=== PATIENT | female | born 1960 ===

== ENCOUNTER 2019-06-18 12:17 | Emergency (ER) | payer OTHER, SELFPAY ==
[2019-06-18 12:28] VITALS: BP 165/70; PULSE 88; RESP 16; TEMP 36.4; O2SAT 97
--- NOTE | 2019-06-18 13:20 | ED.GENADULT ---
HPI - General Adult General Chief complaint: Upper Respiratory Infection Stated complaint: sore throat/headache/weakness/shaky/cough Time Seen by Provider: 06/18/19 13:20 Source: patient and RN notes reviewed Mode of arrival: ambulatory Limitations: no limitations History of Present Illness HPI narrative: 58-year-old female presents with complaints of upper respiratory infection, facial congestion, facial pain, fatigue, cough, and intermittent headaches (not the worst of her life) for the past 11 days. Mucinex cough and cold, allergy sinus pain reliever and cough medicine without relief. No facial swelling. Dry cough. Nasal congestion and rhinorrhea. No chest pain or shortness of breath. Exacerbating factors consist of smoke exposure. Denies fever or chills. Denies nausea, vomiting, and abdominal pain. Tolerating po intake well. Remains active. Menopausal. Some parts of this dictation were generated by voice recognition software and may contain typographical and/or grammatical inaccuracies. Related Data Home Medications Medication Instructions Recorded Confirmed albuterol sulfate 1 inh INHALATION DAILY 06/18/19 06/18/19 buspirone 10 mg PO DAILY 06/18/19 06/18/19 cyclobenzaprine 10 mg PO DIRECTED 06/18/19 06/18/19 fluticasone propionate 1 mcg INTRANASAL DAILY 06/18/19 06/18/19 gabapentin 300 mg PO DAILY 06/18/19 06/18/19 ibuprofen 800 mg PO DIRECTED 06/18/19 06/18/19 trazodone 100 mg PO DAILY 06/18/19 06/18/19 Allergies Allergy/AdvReac Type Severity Reaction Status Date / Time Penicillins Allergy Mild Hives Verified 06/18/19 12:56 aripiprazole Allergy Unknown Unknown Verified 07/16/17 14:26 Review of Systems Review of Systems: Narrative: CONSTITUTIONAL: Complains of fatigue. Denies fever, chills, sweats. EYES: Denies visual changes, redness, discharge. ENT: Complains of rhinorrhea, congestion, facial pressure and congestion, sore throat. Denies otalgia. CARDIOVASCULAR: Denies chest pain, palpitations, edema. RESPIRATORY: Denies dyspnea, wheezing. Complains of dry cough. GASTROINTESTINAL: Denies abdominal pain, nausea, vomiting, diarrhea. GENITOURINARY: Denies dysuria, hematuria, abnormal discharge. SKIN: Denies rash or itching. MUSCULOSKELETAL: Denies acute back pain, joint pain, or myalgia. NEUROLOGIC: Denies numbness or focal weakness. Complains of intermittent VINCENT. PSYCHIATRIC: Denies anxiety or depression. All systems reviewed & are unremarkable except as noted in HPI and below. [facility] Past Medical History Medical History (Updated 06/19/19 @ 00:01 by Tammy De La Vega) Arthritis Breast cancer COPD (chronic obstructive pulmonary disease) Heart murmur Hx of migraines Left breast mass Menopause Neuropathy Surgical History Surgical History (Updated 06/18/19 @ 13:31 by DA Molina) History of lumpectomy of left breast Hx of appendectomy Family History Family History (Updated 06/18/19 @ 13:31 by DA Molina) Mother Diabetes mellitus Bone cancer Social History Social History (Updated 06/18/19 @ 13:32 by DA Molina) Smoking packs per day: 0.5 Smoking cigarettes per day: 10.0 Years smoked: 40 Smoking pack-years: 20.00 Smoking status: Current every day smoker Second hand tobacco smoke exposure: No Alcohol intake: never Substance use: never Living arrangements: with family Occupation/Education: unemployed Gender identity (if verbalized by the patient): Female Comments At time of signature, agree with nurse past medical, surgical, social, and family history. There is no relevant family history pertinent to the presenting complaint. Exam Narrative: Exam Narrative: GENERAL: This is a well-nourished, well-developed patient, in no apparent distress. Talks in full sentences and ambulates with steady gait without dyspnea. HEAD: normocephalic, atraumatic. EYES: PERRL. Sclera clear/white. Vision is grossly intact. EARS: Ext
== END 2019-06-18 13:56 | disposition home or self-care (01) ==
PROVIDERS: Emergency Provider Nurse Practitioner Family; PCP Family Medicine
DX: J32.9 Chronic sinusitis, unspecified (principal); F17.210 Nicotine dependence, cigarettes, uncomplicated; M19.90 Unspecified osteoarthritis, unspecified site; Z85.3 Personal history of malignant neoplasm of breast; J44.9 Chronic obstructive pulmonary disease, unspecified; R01.1 Cardiac murmur, unspecified; G62.9 Polyneuropathy, unspecified
CPT/HCPCS: 87081; 87880; 99213; G0463

== ENCOUNTER 2019-08-18 16:30 | Emergency (ER) | payer OTHER, SELFPAY ==
--- NOTE | ~2019-08-18 | XR_ITS ---
EXAMINATION: XR chest 2V EXAM DATE: 08/18/2019 17:16 INDICATION: Sometimes productive cough. TECHNIQUE: Frontal and lateral projections of the chest obtained and reviewed. There is no prior cj dy for comparison. FINDINGS: The lungs are clear. There are no pleural effusions. The cardiomediastinal silhouette is within normal limits. There is no pneumothorax suspected. The bones and soft tissues are unremarkab le. There are cholecystectomy clips. IMPRESSION: No acute cardiopulmonary findings. If symptoms persist consider screening LDCT. Reviewed, dictated and finalized at location A. IMPRESSION: No acute cardiopulmonary findings. If symptoms persist consider sc reening LDCT.
[2019-08-18 16:55] VITALS: BP 132/66; PULSE 75; RESP 16; TEMP 37; O2SAT 97
--- NOTE | 2019-08-18 17:19 | ED.URI ---
HPI - URI/Sore Throat General Chief Complaint: Upper Respiratory Infection Stated Complaint: cough/chest congestion Time Seen by Provider: 08/18/19 17:02 Source: patient and RN notes reviewed Mode of arrival: ambulatory Limitations: no limitations History of Present Illness HPI Narrative: Patient presents today complaining of a mostly nonproductive cough x2 days. She does report some discomfort in the left sternal area with deep breaths and coughing, but no pain otherwise. Denies fever, shortness of breath, sore throat, congestion, rhinorrhea. History of COPD and breast cancer. She has been taking Zyrtec and cough syrup without much relief. MD elicited complaint: cough Related Data Home Medications Medication Instructions Recorded Confirmed albuterol sulfate 1 inh INHALATION DAILY 06/18/19 08/18/19 buspirone 10 mg PO DAILY 06/18/19 08/18/19 cyclobenzaprine 10 mg PO DIRECTED 06/18/19 08/18/19 fluticasone propionate 1 mcg INTRANASAL DAILY 06/18/19 08/18/19 gabapentin 300 mg PO DAILY 06/18/19 08/18/19 ibuprofen 800 mg PO DIRECTED 06/18/19 08/18/19 trazodone 100 mg PO DAILY 06/18/19 08/18/19 Allergies Allergy/AdvReac Type Severity Reaction Status Date / Time Penicillins Allergy Mild Hives Verified 08/18/19 17:02 aripiprazole Allergy Unknown Unknown Verified 08/18/19 17:02 Review of Systems Review of Systems: Narrative: CONSTITUTIONAL: Denies body aches, fever, chills, or sweats. EYES: Denies visual changes, redness, or discharge. ENT: Denies rhinorrhea, congestion, sore throat, or otalgia. CARDIOVASCULAR: Denies chest pain, palpitations, or edema. RESPIRATORY: Denies dyspnea.+ Cough, chest wall pain GASTROINTESTINAL: Denies abdominal pain, nausea, vomiting, or diarrhea. GENITOURINARY: Denies dysuria or hematuria. SKIN: Denies rash, itching, or wounds. MUSCULOSKELETAL: Denies back pain, joint pain, or myalgia. NEUROLOGIC: Denies headache, numbness, tingling, or weakness. PSYCH: Denies depression or anxiety. [facility] Past Medical History Medical History (Updated 08/18/19 @ 17:39 by Sherlyn Martinez, [employer], [place]) Arthritis Breast cancer COPD (chronic obstructive pulmonary disease) Heart murmur Hx of migraines Left breast mass Menopause Neuropathy Surgical History Surgical History (Updated 06/18/19 @ 13:31 by DA Molina) History of lumpectomy of left breast Hx of appendectomy Family History Family History (Updated 06/18/19 @ 13:31 by DA Molina) Mother Diabetes mellitus Bone cancer Social History Social History (Updated 06/18/19 @ 13:32 by DA Molina) Smoking packs per day: 0.5 Smoking cigarettes per day: 10.0 Years smoked: 40 Smoking pack-years: 20.00 Smoking status: Current every day smoker Second hand tobacco smoke exposure: No Alcohol intake: never Substance use: never Gender identity (if verbalized by the patient): Female Exam Narrative: Exam Narrative: GENERAL: Well-appearing, well-nourished, and in no acute distress. HEAD: Normocephalic, atraumatic. EYES: EOMI. No redness or drainage. Conjunctivae normal. ENT: Mucous membranes pink and moist. Nares clear. No rhinorrhea. TMs normal bilaterally. Throat normal. Uvula midline. NECK: Normal AROM. Supple. No lymphadenopathy. CHEST: No respiratory distress. Slight crackles in the bilateral bases, otherwise clear. HEART: Regular rate and rhythm. No murmur appreciated. Normal peripheral pulses. EXTREMITIES: Normal range of motion. No edema. SKIN: Warm, dry, no rash. Capillary refill normal. Normal skin turgor. NEURO: No focal deficits. Alert and oriented x3. Gait steady. PSYCH: Normal affect. No signs of depression or anxiety. Course Vital Signs Vital signs: Vital Signs Temperature 98.6 F 08/18/19 16:55 Pulse Rate 75 08/18/19 16:55 Respiratory Rate 16 08/18/19 16:55 Blood Pressure 132/66 08/18/19 16:55 Pulse Oximetry 97 08/18/19 16:55 Temperature
== END 2019-08-18 17:45 | disposition home or self-care (01) ==
PROVIDERS: Emergency Provider Nurse Practitioner; PCP Family Medicine
DX: J45.901 Unspecified asthma with (acute) exacerbation (principal); J44.9 Chronic obstructive pulmonary disease, unspecified; M19.90 Unspecified osteoarthritis, unspecified site; Z85.3 Personal history of malignant neoplasm of breast; G62.9 Polyneuropathy, unspecified; F17.210 Nicotine dependence, cigarettes, uncomplicated
CPT/HCPCS: 71046; 99213; G0463

== ENCOUNTER 2020-01-20 10:09 | Emergency (ER) | payer OTHER, SELFPAY ==
--- NOTE | ~2020-01-20 | XR_ITS ---
EXAMINATION: XR chest 2V DATE: 01/20/2020 10:41 INDICATION: Cough. TECHNIQUE: Frontal and lateral views of the chest were obtained. COMPARISON: Chest 2 views 08/18/2019 FINDINGS: The lungs are hyperexpanded, consistent with emphysema. No pleural effusion or pneumothorax . The heart size is normal. There are surgical clips in left breast. IMPRESSION: 1. Emphysema. Reviewed, dictated and finalized at location A. IMPRESSION: 1. Emphysema.
[2020-01-20 10:18] VITALS: BP 146/60; PULSE 84; RESP 18; TEMP 37; O2SAT 94
--- NOTE | 2020-01-20 10:18 | ED.GENADULT ---
HPI - General Adult General Chief complaint: Upper Respiratory Infection Stated complaint: Sore Throat,Cough Time Seen by Provider: 01/20/20 10:26 Source: patient Mode of arrival: ambulatory Limitations: no limitations History of Present Illness HPI narrative: 59-year-old female patient presents to the [facility] with complaints of cold symptoms for the past 2 weeks. Patient states she has had a cough and at times she does cough up some yellow sputum. Patient states she has had a little bit of pain to the left ear, runny nose, itchy eyes. Denies any fevers body aches or chills. Denies any chest pain or shortness of breath. Patient states she does have a slight sore throat at times but is been intermittent. Patient states she also feels like she has been wheezing. Denies any abdominal pain, nausea, vomiting or diarrhea. Patient does have a history of COPD and is an active smoker. Patient states that she did get her pneumonia and flu shot this year. Patient states she has been taking some over the counter 12-hour cough syrup, Zyrtec as well as using her nebulizer at home. Patient states she has been tested for COVID but is been many months ago and nothing current. Related Data Home Medications Medication Instructions Recorded Confirmed albuterol sulfate 1 inh INHALATION DAILY 06/18/19 08/18/19 buspirone 10 mg PO DAILY 06/18/19 08/18/19 cyclobenzaprine 10 mg PO DIRECTED 06/18/19 08/18/19 fluticasone propionate 1 mcg INTRANASAL DAILY 06/18/19 08/18/19 gabapentin 300 mg PO DAILY 06/18/19 08/18/19 ibuprofen 800 mg PO DIRECTED 06/18/19 08/18/19 trazodone 100 mg PO DAILY 06/18/19 08/18/19 budesonide-formoterol [Symbicort] INHALATION 01/20/20 dicyclomine mg 01/20/20 lamotrigine 01/20/20 Allergies Allergy/AdvReac Type Severity Reaction Status Date / Time Penicillins Allergy Mild Hives Verified 08/18/19 17:02 aripiprazole Allergy Unknown Unknown Verified 08/18/19 17:02 Review of Systems Review of Systems: Narrative: CONSTITUTIONAL: Denies fever, chills, or sweats. EYES: Denies visual changes, redness, or discharge. ENT: Denies rhinorrhea, positive congestion, sore throat, and left otalgia. CARDIOVASCULAR: Denies chest pain, palpitations, or edema. RESPIRATORY: Positive cough, denies dyspnea. GASTROINTESTINAL: Denies abdominal pain, nausea, vomiting, or diarrhea. GENITOURINARY: Denies dysuria or hematuria. SKIN: Denies rash or itching. MUSCULOSKELETAL: Denies back pain, joint pain, or myalgia. NEUROLOGIC: Denies headache, numbness, or weakness. PSYCHIATRIC: Denies anxiety or depression. [facility] Past Medical History Medical History Arthritis Breast cancer COPD (chronic obstructive pulmonary disease) Heart murmur Hx of migraines Left breast mass Menopause Neuropathy Surgical History Surgical History History of lumpectomy of left breast Hx of appendectomy Family History Family History Mother Diabetes mellitus Bone cancer Social History Social History Smoking packs per day: 0.5 Smoking cigarettes per day: 10.0 Years smoked: 40 Smoking pack-years: 20.00 Smoking status: Current every day smoker Second hand tobacco smoke exposure: No Alcohol intake: never Substance use: never Gender identity (if verbalized by the patient): Female Comments At the time of my signature I agree with nursing past medical history, surgical, social, and family history. There is no relevant family history pertinent to the presenting complaint. Exam Narrative: Exam Narrative: GENERAL: Well-appearing, well-nourished, and in no acute distress. HEAD: Normocephalic, atraumatic. EYES: PERRLA and EOMI. ENT: Nares with erythema and edema noted bilaterally, patent, no rhinorrhea or epistaxis. Mucous memb
== END 2020-01-20 10:57 | disposition home or self-care (01) ==
PROVIDERS: Emergency Provider Nurse Practitioner Family; PCP Family Medicine
DX: R05 Cough (principal); J06.9 Acute upper respiratory infection, unspecified; Z20.828 Contact with and (suspected) exposure to other viral communicable diseases; F17.210 Nicotine dependence, cigarettes, uncomplicated; J44.9 Chronic obstructive pulmonary disease, unspecified; M19.90 Unspecified osteoarthritis, unspecified site; Z85.3 Personal history of malignant neoplasm of breast; G62.9 Polyneuropathy, unspecified
CPT/HCPCS: 71046; 87081; 87635; 87804; 87880; 99213; C9803; G0463; U0003

== ENCOUNTER 2020-01-20 12:51 | Outpatient (NON) | payer OTHER, SELFPAY ==
[2020-01-20 22:02] LABS: SARS-CoV-2 RNA PCR Negative
== END 2020-01-20 12:52 ==
PROVIDERS: PCP Family Medicine; Visit Provider Nurse Practitioner Family
DX: Z20.828 Contact with and (suspected) exposure to other viral communicable diseases (principal); J06.9 Acute upper respiratory infection, unspecified; R05 Cough
CPT/HCPCS: 87635; C9803; U0003

== ENCOUNTER 2020-05-01 11:03 | Emergency (ER) | payer OTHER, SELFPAY ==
[2020-05-01 11:21] VITALS: BP 152/71; PULSE 93; RESP 18; TEMP 37.2; O2SAT 97
--- NOTE | 2020-05-01 11:45 | ED.EAR ---
HPI - Ear Problem General Chief complaint: Ear Stated complaint: Ear Pain,Cough Time Seen by Provider: 05/01/20 11:46 Source: patient and RN notes reviewed Mode of arrival: ambulatory Limitations: no limitations History of Present Illness HPI Narrative: 59 year old female who presents to [facility] care with complaints of left ear pain for 4 days and it has been feeling clogged like she is hearing under water. Patient states that her ear hurts in the canal and she has some ringing in her ears. Patient states that she also has some head congestion, some loose cough, denies any fevers or body aches for 9-10 days. Patient states that she has been taking Zyrtec daily and she has taken flonase for a long time but doesn't seem to help has taken cold and sinus medication OTC. MD Complaint: ear pain Location: left ear Duration: constant Severity: mild Relieving factors: nothing Exacerbating factors: nothing Discharge from ear: Reports no Associated symptoms ear: decreased hearing, headache, external ear tenderness, tinnitus and other (head congestion, cough) Treatment prior to arrival: other (flonase, cold and sinus medication) Related Data Home Medications Medication Instructions Recorded Confirmed albuterol sulfate 1 inh INHALATION DAILY 06/18/19 05/01/20 buspirone 10 mg PO DAILY 06/18/19 05/01/20 fluticasone propionate 1 mcg INTRANASAL DAILY 06/18/19 05/01/20 trazodone 100 mg PO DAILY 06/18/19 05/01/20 budesonide-formoterol [Symbicort] 1 inh INHALATION DAILY 01/20/20 05/01/20 dicyclomine 10 mg PO DAILY 01/20/20 05/01/20 lamotrigine 100 mg PO DAILY 01/20/20 05/01/20 Gava 2 tab-cap PO DAILY 05/01/20 gabapentin 100 mg PO DIRECTED 05/01/20 05/01/20 Allergies Allergy/AdvReac Type Severity Reaction Status Date / Time aripiprazole Allergy Mild Rash Verified 05/01/20 11:13 Penicillins Allergy Mild Hives Verified 05/01/20 11:06 Review of Systems Review of Systems: Narrative: CONSTITUTIONAL: Denies fever, chills, or sweats. EYES: Denies visual changes, redness, or discharge. ENT: positive rhinorrhea, congestion, no sore throat, left otalgia. CARDIOVASCULAR: Denies chest pain, palpitations, or edema. RESPIRATORY: positive cough, history of COPD no acute dyspnea. GASTROINTESTINAL: Denies abdominal pain, nausea, vomiting, or diarrhea. GENITOURINARY: Denies dysuria or hematuria. SKIN: Denies rash or itching. MUSCULOSKELETAL: Denies back pain, joint pain, or myalgia. NEUROLOGIC Positive headache,no numbness, or weakness. PSYCHIATRIC: Positive anxiety or depression. All systems reviewed & are unremarkable except as noted in HPI and below PMFSH Past Medical History Medical History (Updated 05/01/20 @ 18:00 by Huyen Abdullahi NP) Arthritis Breast cancer COPD (chronic obstructive pulmonary disease) Heart murmur Hx of migraines IBS (irritable bowel syndrome) Left breast mass Menopause Neuropathy Surgical History Surgical History History of lumpectomy of left breast Hx of appendectomy Family History Family History Mother Diabetes mellitus Bone cancer Social History Social History Smoking packs per day: 0.5 Smoking cigarettes per day: 10.0 Years smoked: 40 Smoking pack-years: 20.00 Smoking status: Current every day smoker Second hand tobacco smoke exposure: No Alcohol intake: never Substance use: never Gender identity (if verbalized by the patient): Female Comments At time of signature, agree with nursing past medical, surgical, social and family history. There is no relevant family history pertinent to the presenting complaint Exam Narrative: Exam Narrative: GENERAL: Well-appearing, well-nourished, and in no acute distress. HEAD: Normocephalic, atraumatic. EYES: PERRLA and EOMI. ENT: Nares red with turbines swollen,clear rhinorrhea no e
== END 2020-05-01 12:20 | disposition home or self-care (01) ==
PROVIDERS: Emergency Provider Registered Nurse; PCP Family Medicine
DX: J06.9 Acute upper respiratory infection, unspecified (principal); R05 Cough; H60.502 Unspecified acute noninfective otitis externa, left ear; F17.210 Nicotine dependence, cigarettes, uncomplicated; M19.90 Unspecified osteoarthritis, unspecified site; J44.9 Chronic obstructive pulmonary disease, unspecified; R01.1 Cardiac murmur, unspecified; Z85.3 Personal history of malignant neoplasm of breast
CPT/HCPCS: 99213; G0463

== ENCOUNTER 2021-01-24 10:47 | Emergency (ER) | payer OTHER, SELFPAY ==
--- NOTE | ~2021-01-24 | XR_ITS ---
XR knee LT min 4V 01/24/2021 11:08 INDICATION: Left knee swelling PROCEDURE: 4 views left knee COMPARISON: No prior studies for comparison. FINDINGS: Fracture, dislocation or subluxation is not identified. No significant joint effusion. The soft tissues appear within normal limits. No foreign bodies are identified. IMPRESSION: 1: NO ACUTE BONE OR JOINT ABNORMALITY IDENTIFIED. Reviewed, dictated and finalized at location B.
--- NOTE | 2021-01-24 10:55 | ED.LOWEXIN ---
HPI - Extremity Injury (Lower) General Chief Complaint: Extremity Problem,Nontraumatic Stated Complaint: Swollen Knee Time Seen by Provider: 01/24/21 10:55 Source: patient and RN notes reviewed Mode of arrival: ambulatory Limitations: no limitations History of Present Illness HPI Narrative: 60-year-old female presents to the [facility] with complaints of left knee swelling for about 1 week. Related Data Home Medications Medication Instructions Recorded Confirmed albuterol sulfate 1 inh INHALATION DAILY 06/18/19 01/24/21 buspirone 10 mg PO DAILY 06/18/19 01/24/21 fluticasone propionate 1 mcg INTRANASAL DAILY 06/18/19 01/24/21 trazodone 100 mg PO DAILY 06/18/19 01/24/21 budesonide-formoterol [Symbicort] 1 inh INHALATION DAILY 01/20/20 01/24/21 dicyclomine 10 mg PO DAILY 01/20/20 01/24/21 lamotrigine 100 mg PO DAILY 01/20/20 01/24/21 gabapentin 100 mg PO DIRECTED 05/01/20 01/24/21 Allergies Allergy/AdvReac Type Severity Reaction Status Date / Time aripiprazole Allergy Mild Rash Verified 01/24/21 10:58 Penicillins Allergy Mild Hives Verified 01/24/21 10:58 Review of Systems Review of Systems: All systems reviewed & are unremarkable except as noted in HPI and below Constitutional: Constitutional: Reports no additional constitutional complaints, Denies chills and Denies fever(s) Eyes: Eyes: Reports no additional eye complaints ENT: Reports system reviewed and no additional complaints, except as documented Cardiovascular: Cardiovascular: Reports no additional cardiovascular complaints and Denies chest pain Respiratory: Respiratory: Reports no additional respiratory complaints Musculoskeletal: Musculoskeletal: Reports as per HPI, Denies back pain, Reports arthralgias (Left knee) and Reports joint swelling (Left knee) Integumentary/Breasts: Skin/Breast: Reports system reviewed and no additional complaints, except as docu Neurologic: Reports system reviewed and no additional complaints, except as documented Psychiatric: Psychiatric: Reports no additional psychiatric complaints Allergic/Immunologic: Allergic/Immunologic: Reports no additional allergic/immunologic complaints PMFSH Past Medical History Medical History (Updated 01/24/21 @ 11:28 by Tawana Perez) Arthritis Breast cancer COPD (chronic obstructive pulmonary disease) Heart murmur Hx of migraines IBS (irritable bowel syndrome) Left breast mass Menopause Neuropathy Surgical History Surgical History History of lumpectomy of left breast Hx of appendectomy Family History Family History Mother Diabetes mellitus Bone cancer Social History Social History Smoking packs per day: 0.5 Smoking cigarettes per day: 10.0 Years smoked: 40 Smoking pack-years: 20.00 Smoking status: Current every day smoker Second hand tobacco smoke exposure: No Alcohol intake: never Substance use: never Gender identity (if verbalized by the patient): Female Comments At the time of my signature, I reviewed and agree with the nursing past medical, surgical, social, and family history. There is no relevant family history pertinent to the patient complaint. Exam Const: General: healthy appearing, no acute distress and alert Nutritional Appearance: well nourished Orientation/consciousness: patient oriented x3 HENMT: Head: normal to inspection Eyes: Pupils: Equal, round and reactive pupils present Neck: Neck: normal visual inspection and no lymphadenopathy Chest: Chest palpation & inspection: normal inspection of the chest Resp: Effort & Inspection: normal respiratory effort and no use of accessory muscles Auscultation: clear to auscultation bilaterally, no crackles, no rales, no rhonchi and no wheezes Cardio: Rate: regular rate Rhythm: regular rhythm : General: Yes no CVA tenderness Back/Sp
[2021-01-24 10:56] VITALS: BP 136/69; PULSE 89; RESP 16; TEMP 36.4; O2SAT 98
== END 2021-01-24 11:39 | disposition home or self-care (01) ==
PROVIDERS: Emergency Provider Nurse Practitioner; PCP Family Medicine
DX: M25.562 Pain in left knee (principal); M25.462 Effusion, left knee; M19.90 Unspecified osteoarthritis, unspecified site; J44.9 Chronic obstructive pulmonary disease, unspecified; Z85.3 Personal history of malignant neoplasm of breast; R01.1 Cardiac murmur, unspecified; G62.9 Polyneuropathy, unspecified; F17.210 Nicotine dependence, cigarettes, uncomplicated
CPT/HCPCS: 73564; 99213; G0463

== ENCOUNTER 2022-02-03 10:21 | Emergency (ER) | payer OTHER, SELFPAY ==
[2022-02-03 10:39] VITALS: BP 115/67; PULSE 85; RESP 18; TEMP 36.2; O2SAT 99
--- NOTE | 2022-02-03 11:13 | ED.URI ---
HPI - URI/Sore Throat General Chief Complaint: Upper Respiratory Infection Stated Complaint: uri Time Seen by Provider: 02/03/22 11:13 Source: patient and RN notes reviewed Mode of arrival: ambulatory Limitations: no limitations History of Present Illness HPI Narrative: 61-year-old female presents to the [facility] with complaints of chest congestion, cough for the last 2-3 days. Has been using her inhaler with minimal relief. She takes allergy medication every day. Denies chest pain. Reports shortness of breath but that is normal for her COPD. Denies fevers. Currently smoking. History of COPD. MD elicited complaint: cough Related Data Home Medications Medication Instructions Recorded Confirmed albuterol sulfate 90 mcg/actuation 1 inh inhalation DAILY 06/18/19 02/03/22 aerosol inhaler buspirone 10 mg tablet 10 mg PO DAILY 06/18/19 02/03/22 trazodone 100 mg tablet 100 mg PO DAILY 06/18/19 02/03/22 budesonide-formoterol HFA 80 1 inh inhalation DAILY 01/20/20 02/03/22 mcg-4.5 mcg/actuation aerosol inhaler (Symbicort) dicyclomine 10 mg capsule 10 mg PO DAILY 01/20/20 02/03/22 lamotrigine 100 mg tablet 100 mg PO DAILY 01/20/20 02/03/22 gabapentin 100 mg capsule 100 mg PO DIRECTED 05/01/20 02/03/22 Allergies Allergy/AdvReac Type Severity Reaction Status Date / Time aripiprazole Allergy Mild Rash Verified 02/03/22 10:24 Penicillins Allergy Mild Hives Verified 02/03/22 10:24 Review of Systems Review of Systems: All systems reviewed & are unremarkable except as noted in HPI and below Constitutional: Constitutional: Reports no additional constitutional complaints, Denies chills and Denies fever(s) Eyes: Eyes: Reports no additional eye complaints ENT: Reports system reviewed and no additional complaints, except as documented Cardiovascular: Cardiovascular: Reports no additional cardiovascular complaints Respiratory: Respiratory: Reports as per HPI, Reports chest congestion, Reports cough and Reports dyspnea Gastrointestinal: Gastrointestinal: Reports no additional gastrointestinal complaints Musculoskeletal: Musculoskeletal: Reports no additional musculoskeletal complaints Integumentary/Breasts: Skin/Breast: Reports system reviewed and no additional complaints, except as docu Neurologic: Reports system reviewed and no additional complaints, except as documented Psychiatric: Psychiatric: Reports no additional psychiatric complaints Allergic/Immunologic: Allergic/Immunologic: Reports no additional allergic/immunologic complaints PMFSH Past Medical History Medical History Arthritis Breast cancer COPD (chronic obstructive pulmonary disease) Heart murmur Hx of migraines IBS (irritable bowel syndrome) Left breast mass Menopause Neuropathy Surgical History Surgical History History of lumpectomy of left breast Hx of appendectomy Family History Family History Mother Diabetes mellitus Bone cancer Social History Social History Smoking packs per day: 0.5 Smoking cigarettes per day: 10.0 Years smoked: 40 Smoking pack-years: 20.00 Smoking status: Current every day smoker Second hand tobacco smoke exposure: No Alcohol intake: never Substance use: never Gender identity (if verbalized by the patient): Female Comments At the time of my signature, I reviewed and agree with the nursing past medical, surgical, social, and family history. There is no relevant family history pertinent to the patient complaint. Exam Const: General: healthy appearing, no acute distress, alert and well nourished Nutritional Appearance: well nourished Orientation/consciousness: patient oriented x3 Limitations: no limitations HENMT: Head: normal to inspection Ears: external ears normal,
== END 2022-02-03 11:23 | disposition home or self-care (01) ==
PROVIDERS: Emergency Provider Nurse Practitioner; PCP Family Medicine
DX: J40 Bronchitis, not specified as acute or chronic (principal); J44.9 Chronic obstructive pulmonary disease, unspecified; F17.210 Nicotine dependence, cigarettes, uncomplicated
CPT/HCPCS: 99213; G0463

== ENCOUNTER 2022-05-29 14:37 | Emergency (ER) | payer OTHER, SELFPAY ==
--- NOTE | 2022-05-29 14:42 | ED.LOWEXIN ---
HPI - Extremity Injury (Lower) General Chief Complaint: Extremity Injury, Lower Stated Complaint: Right Knee Pain Time Seen by Provider: 05/29/22 14:42 Source: patient Mode of arrival: ambulatory Limitations: no limitations History of Present Illness HPI Narrative: States he is a 61-year-old female patient presenting to the clinic today with complaints of right lateral knee pain x1 week. She reports that she feels as though her right knee is swollen. She denies any known injury. She reports that walking does aggravate the pain. Related Data Home Medications Medication Instructions Recorded Confirmed albuterol sulfate 90 mcg/actuation 1 inh inhalation DAILY 06/18/19 02/03/22 aerosol inhaler buspirone 10 mg tablet 20 mg PO TID 06/18/19 05/29/22 trazodone 100 mg tablet 100 mg PO BID 06/18/19 05/29/22 budesonide-formoterol HFA 80 1 inh inhalation DAILY 01/20/20 02/03/22 mcg-4.5 mcg/actuation aerosol inhaler (Symbicort) dicyclomine 10 mg capsule 10 mg PO DAILY 01/20/20 02/03/22 lamotrigine 100 mg tablet 100 mg PO BID 01/20/20 05/29/22 gabapentin 100 mg capsule 100 mg PO DIRECTED 05/01/20 02/03/22 clonazepam 0.5 mg tablet 0.5 mg PO BID 05/29/22 05/29/22 Allergies Allergy/AdvReac Type Severity Reaction Status Date / Time aripiprazole Allergy Mild Rash Verified 05/29/22 14:48 Penicillins Allergy Mild Hives Verified 05/29/22 14:48 Review of Systems Review of Systems: Pertinent positives per HPI. Patient denies any fever, chills, rash, headache, visual changes, dizziness, cough, runny nose, sore throat, shortness of breath, chest pain, palpitations, nausea, vomiting, diarrhea, constipation, abdominal pain, or any urinary issues. COUNT INCLUDES THE [facility] Past Medical History Medical History Arthritis Breast cancer COPD (chronic obstructive pulmonary disease) Heart murmur Hx of migraines IBS (irritable bowel syndrome) Left breast mass Menopause Neuropathy Surgical History Surgical History History of lumpectomy of left breast Hx of appendectomy Family History Family History Mother Diabetes mellitus Bone cancer Social History Social History Smoking packs per day: 0.5 Smoking cigarettes per day: 10.0 Years smoked: 40 Smoking pack-years: 20.00 Smoking status: Current every day smoker Second hand tobacco smoke exposure: No Alcohol intake: never Substance use: never Living arrangements: with family Occupation/Education: unemployed Gender identity (if verbalized by the patient): Female Comments At the time of my signature, I reviewed and agree with the nursing past medical, surgical, social, and family history. There is no relevant family history pertinent to the patient complaint. Exam Narrative: General: Well-developed, well nourished, in no apparent distress Head: Normocephalic, atraumatic. Cardio: Regular rate and rhythm, s1 and s2 normal, no murmur appreciated. Resp: Clear to auscultation bilaterally, no rhonchi, rales, wheezing or rubs. Musculoskeletal: No deformity,tender to palpation over the inferior lateral knee, grossly normal range of motion, crepitus felt with flexion and extension of the right knee, very mild swelling noted to the right lateral knee, negative anterior drawer, posterior drawer, valgus, and varus testing, muscle strength strong and equal, peripheral pulse strong, no edema, no cyanosis, normal gait and station Course Course Emergency Course: Portions of this record may have been created with voice recognition software. Level of Care: Express Care Visit Vital Signs Vital signs: Vital signs reviewed MDM - Extremity Injury (Lower) MDM Narrative Medical decision making narrative: At the time of visit patient is resting
[2022-05-29 14:44] VITALS: BP 149/73; PULSE 85; RESP 16; TEMP 36.7; O2SAT 98
[2022-05-29 14:48] VITALS: BP 149/73; PULSE 85; RESP 16; TEMP 36.7; O2SAT 98
== END 2022-05-29 15:03 | disposition home or self-care (01) ==
PROVIDERS: Emergency Provider Nurse Practitioner Family; PCP Family Medicine
DX: M25.561 Pain in right knee (principal); J44.9 Chronic obstructive pulmonary disease, unspecified; F17.210 Nicotine dependence, cigarettes, uncomplicated; Z85.3 Personal history of malignant neoplasm of breast
CPT/HCPCS: 99213; G0463

== ENCOUNTER 2022-07-24 09:38 | Emergency (ER) | payer OTHER, SELFPAY ==
[2022-07-24 09:57] VITALS: BP 135/64; PULSE 75; RESP 16; TEMP 36.1; O2SAT 97
--- NOTE | 2022-07-24 10:42 | ED.UPPEXIN ---
HPI - Extremity Injury (Upper) General Chief Complaint: Extremity Injury, Upper Stated Complaint: Left Shoulder Pain Time Seen by Provider: 07/24/22 10:27 Source: patient Mode of arrival: ambulatory Limitations: no limitations History of Present Illness HPI narrative: Patient presents today complaining of left shoulder pain x2 days. Three days ago she was moving heavy furniture and hurt her shoulder. Reports limited range of motion due to pain. Denies numbness or tingling in the arm or hand. She currently rates her pain 9/10 at rest. She takes Excedrin daily for headache, but has not been taking anything specifically for pain. Related Data Home Medications Medication Instructions Recorded Confirmed albuterol sulfate 90 mcg/actuation 1 inh inhalation DAILY 06/18/19 05/29/22 aerosol inhaler buspirone 10 mg tablet 20 mg PO TID 06/18/19 05/29/22 trazodone 100 mg tablet 100 mg PO BID 06/18/19 05/29/22 budesonide-formoterol HFA 80 1 inh inhalation DAILY 01/20/20 05/29/22 mcg-4.5 mcg/actuation aerosol inhaler (Symbicort) lamotrigine 100 mg tablet 100 mg PO BID 01/20/20 05/29/22 clonazepam 0.5 mg tablet 0.5 mg PO BID 05/29/22 05/29/22 fluticasone propionate 50 intranasal 07/24/22 mcg/actuation nasal spray,suspension gabapentin 100 mg capsule mg 07/24/22 07/24/22 Allergies Allergy/AdvReac Type Severity Reaction Status Date / Time aripiprazole Allergy Mild Rash Verified 07/24/22 10:10 Penicillins Allergy Mild Hives Verified 07/24/22 10:10 Review of Systems Review of Systems: CONSTITUTIONAL: Denies body aches, fever, chills, or sweats. EYES: Denies visual changes, redness, or discharge. ENT: Denies rhinorrhea, congestion, sore throat, or otalgia. CARDIOVASCULAR: Denies chest pain, palpitations, or edema. RESPIRATORY: Denies cough or dyspnea. GASTROINTESTINAL: Denies abdominal pain, nausea, vomiting, or diarrhea. GENITOURINARY: Denies dysuria or hematuria. SKIN: Denies rash, itching, or wounds. MUSCULOSKELETAL: + left shoulder pain. NEUROLOGIC: Denies headache, numbness, tingling, or weakness. PSYCH: Denies depression or anxiety. [facility] Past Medical History Medical History Arthritis Breast cancer COPD (chronic obstructive pulmonary disease) Heart murmur Hx of migraines IBS (irritable bowel syndrome) Left breast mass Menopause Neuropathy Surgical History Surgical History History of lumpectomy of left breast Hx of appendectomy Family History Family History Mother Diabetes mellitus Bone cancer Social History Social History Smoking packs per day: 0.5 Smoking cigarettes per day: 10.0 Years smoked: 40 Smoking pack-years: 20.00 Smoking status: Current every day smoker Second hand tobacco smoke exposure: No Alcohol intake: never Substance use: never Living arrangements: with family Occupation/Education: unemployed Gender identity (if verbalized by the patient): Female Comments At time of signature, I have reviewed and agree with nursing past medical, surgical, social and family history unless otherwise noted. Please see nursing chart for further information. There is no relevant family history pertinent to the presenting complaint Exam Narrative: GENERAL: Well-appearing, well-nourished, and in no acute distress. HEAD: Normocephalic, atraumatic. EYES: EOMI. No redness or drainage. Conjunctivae normal. ENT: Mucous membranes pink and moist. NECK: Normal AROM. No tenderness CHEST: No respiratory distress. EXTREMITIES: Tenderness generally around the shoulder that extends to the bicep and tricep. No edema. Patient has 90 ? extension and abduction an almost full internal and external rotation, all with some degree of pain. Dista
== END 2022-07-24 11:00 | disposition home or self-care (01) ==
PROVIDERS: Emergency Provider Nurse Practitioner; PCP Family Medicine
DX: S46.912A Strain of unspecified muscle, fascia and tendon at shoulder and upper arm level, left arm, initial encounter (principal); X50.0XXA Overexertion from strenuous movement or load, initial encounter; M19.90 Unspecified osteoarthritis, unspecified site; J44.9 Chronic obstructive pulmonary disease, unspecified; R01.1 Cardiac murmur, unspecified; G62.9 Polyneuropathy, unspecified; Z85.3 Personal history of malignant neoplasm of breast; F17.210 Nicotine dependence, cigarettes, uncomplicated
CPT/HCPCS: 99213; G0463

== ENCOUNTER 2023-02-04 10:51 | Emergency (ER) | payer OTHER, SELFPAY ==
[2023-02-04 11:06] VITALS: BP 114/75; PULSE 73; RESP 16; TEMP 36.6; O2SAT 100
--- NOTE | 2023-02-04 11:50 | ED.GENADULT ---
HPI - General Adult General Chief complaint: Ear Stated complaint: both ears ringing,left ear pain,chest congestion Time Seen by Provider: 02/04/23 11:37 Source: patient and RN notes reviewed Mode of arrival: ambulatory Limitations: no limitations History of Present Illness HPI narrative: Patient presents today complaining of a one-week history of nasal congestion, sinus pressure, postnasal drip, right-sided tinnitus, left ear pain. Denies cough or shortness of breath. She has been occasionally taking Claritin, and takes Flonase daily, without much relief. History of COPD. Related Data Home Medications Medication Instructions Recorded Confirmed albuterol sulfate 90 mcg/actuation 1 inh inhalation DAILY 06/18/19 05/29/22 aerosol inhaler buspirone 10 mg tablet 20 mg PO TID 06/18/19 05/29/22 trazodone 100 mg tablet 100 mg PO BID 06/18/19 05/29/22 budesonide-formoterol HFA 80 1 inh inhalation DAILY 01/20/20 05/29/22 mcg-4.5 mcg/actuation aerosol inhaler (Symbicort) lamotrigine 100 mg tablet 100 mg PO BID 01/20/20 05/29/22 clonazepam 0.5 mg tablet 0.5 mg PO BID 05/29/22 05/29/22 fluticasone propionate 50 intranasal 07/24/22 mcg/actuation nasal spray,suspension gabapentin 100 mg capsule mg 07/24/22 07/24/22 Allergies Allergy/AdvReac Type Severity Reaction Status Date / Time aripiprazole Allergy Mild Rash Verified 02/04/23 10:56 Penicillins Allergy Mild Hives Verified 02/04/23 10:56 Review of Systems Review of Systems: CONSTITUTIONAL: Denies body aches, fever, chills, or sweats. EYES: Denies visual changes, redness, or discharge. ENT: Denies rhinorrhea, sore throat.+ congestion, sinus pressure, postnasal drip, ear pain, ear ringing CARDIOVASCULAR: Denies chest pain, palpitations, or edema. RESPIRATORY: Denies cough or dyspnea. GASTROINTESTINAL: Denies abdominal pain, nausea, vomiting, or diarrhea. GENITOURINARY: Denies dysuria or hematuria. SKIN: Denies rash, itching, or wounds. MUSCULOSKELETAL: Denies back pain, joint pain, or myalgia. NEUROLOGIC: Denies headache, numbness, tingling, or weakness. PSYCH: Denies depression or anxiety. [facility] Past Medical History Medical History Arthritis Breast cancer COPD (chronic obstructive pulmonary disease) Heart murmur Hx of migraines IBS (irritable bowel syndrome) Left breast mass Menopause Neuropathy Surgical History Surgical History History of lumpectomy of left breast Hx of appendectomy Family History Family History Mother Diabetes mellitus Bone cancer Social History Social History Smoking packs per day: 0.5 Smoking cigarettes per day: 10.0 Years smoked: 40 Smoking pack-years: 20.00 Smoking status: Current every day smoker Second hand tobacco smoke exposure: No Alcohol intake: never Substance use: never Living arrangements: with family Occupation/Education: unemployed Gender identity (if verbalized by the patient): Female Comments At time of signature, I have reviewed and agree with nursing past medical, surgical, social and family history unless otherwise noted. Please see nursing chart for further information. There is no relevant family history pertinent to the presenting complaint Exam Narrative: GENERAL: Well-appearing, well-nourished, and in no acute distress. HEAD: Normocephalic, atraumatic. EYES: EOMI. No redness or drainage. Conjunctivae normal. ENT: Mucous membranes pink and moist. Nares congested. No rhinorrhea. Left TM slightly injected and bulging with yellow fluid. Right middle ear effusion. Throat normal. Uvula midline. NECK: Normal AROM. Supple. No lymphadenopathy. CHEST: No respiratory distress. Clear to auscultation. HEART: Regular rate and rhyth
== END 2023-02-04 12:15 | disposition home or self-care (01) ==
PROVIDERS: Emergency Provider Nurse Practitioner; PCP Family Medicine
DX: H66.92 Otitis media, unspecified, left ear (principal); J06.9 Acute upper respiratory infection, unspecified; F17.210 Nicotine dependence, cigarettes, uncomplicated; J44.9 Chronic obstructive pulmonary disease, unspecified; R01.1 Cardiac murmur, unspecified; G62.9 Polyneuropathy, unspecified; M19.90 Unspecified osteoarthritis, unspecified site; Z85.3 Personal history of malignant neoplasm of breast; Z90.12 Acquired absence of left breast and nipple
CPT/HCPCS: 99213; G0463

== ENCOUNTER 2025-01-15 11:03 | Emergency (ER) | payer MEDICARE, OTHER, SELFPAY ==
--- NOTE | 2025-01-15 11:11 | ED_ITS ---
HPI - URI/Sore Throat General Chief Complaint: Upper Respiratory Infection Stated Complaint: Sinus Time Seen by Provider: 01/15/25 11:20 Source: patient and RN notes reviewed Mode of arrival: ambulatory Limitations: no limitations History of Present Illness HPI Narrative: 64-year-old female presents with concern for 9 day history of sinus congestion, pressure, drainage, pain. She reports she has been taking [id number] medications without relief. Reports she has now started having ear pain on the left side with sinus pain on the left side MD elicited complaint: cough, nasal congestion and sinus pain Related Data Home Medications ?Medication ?Instructions ?Recorded ?Confirmed ?Last Taken ?Type albuterol sulfate 90 mcg/actuation 1 inh inhalation DA CONCEPCION 06/18/19 05/29/22 Unknown History aerosol inhaler buspirone 10 mg tablet 20 mg PO TID 06/18/19 Unknown History trazodone 100 mg tablet 100 mg PO BID 06/18/1905/29 Unknown History budesonide-formoterol HFA 80 1 inh inhalation DAILY 05/29/22 Unknown History mcg-4.5 mcg/actuation aerosol inhaler (Symbicort) lamotrigine 100 mg tablet 100 mg PO BID 01/20/2005/29 Unknown History clonazepam 0.5 mg tablet 0.5 mg PO BID 05/29/2205/29 Unknown History fluticasone propionate 50 intranasal 07/24/22 Unknown History mcg/actuation nasal spray,suspension gabapentin 100 mg capsule mg 07/24/22 07/24/22 Unknown History Allergies Allergy/AdvReac Type Severity Reaction Status Date / Time aripiprazole Allergy Mild Rash Verified 01/15/25 11:05 Penicillins Allergy Mild Hives Verified 01/15/25 11:05 Review of Systems Review of Systems: CONSTITUTIONAL: Denies malaise, chills, sweats, or fever. EYES: Denies visual changes, redness, or discharge. ENT: Reports rhinorrhea, congestion, sinus pain, otalgia CARDIOVASCULAR: Denies chest pain, palpitations, or edema. RESPIRATORY: Reports cough. Denies dyspnea. GASTROINTESTINAL: Denies abdominal pain, nausea, vomiting, diarrhea SKIN: Denies rash or itching. MUSCULOSKELETAL: Denies myalgia. NEUROLOGIC: Denies headache. All systems reviewed & are unremarkable except as noted in HPI and below PMFSH Past Medical History Medical History Arthritis Breast cancer COPD (chronic obstructive pulmonary disease) Heart murmur Hx of migraines IBS (irritable bowel syndrome) Left breast mass Menopause Neuropathy Surgical History Surgical History History of lumpectomy of left breast Hx of appendectomy Family History Family History Mother Diabetes mellitus Bone cancer Social History Social History Smoking packs per day: 0.5 Smoking cigarettes per day: 10.0 Years smoked: 40 Smoking pack-years: 20.00 Smoking status: Current every day smoker Second hand tobacco smoke exposure: No Alcohol intake: never Substance use: never Living arrangements: with family Occupation/Education: unemployed Gender identity (if verbalized by the patient): Female Comments At time of signature, agree with nursing past medical, surgical, social and family history. There is no relevant family history pertinent to the presenting complaint Exam Narrative: GENERAL: Well-appearing, well-nourished, and in no acute distress. HEAD: Normocephalic EYES: PERRLA, conjunctivae clear ENT: Nares clear, turbinates edematous and erythematous. Mucous membranes moist. TM pearly king with sharp light reflex bilaterally; no tragal tenderness. Oropharynx not erythematous without lesions. Tonsils not enlarged and without exudate, no drooling, no hoarseness, no trismus, uvula midline. NECK: Supple. No lymphadenopathy CHEST: Clear to auscultation, breath sounds equal. No wheezing, rhonchi, rales, or stridor. No respiratory distress, speaks in full sentences. HEART: Regular rate and rhythm. No murmur heard. SKIN: Warm, dry, no rash. NEURO: Alert and oriented x3. PSYCH: Normal mood and affect Course Course Emergency Course: Patient is aware of diagnosis, understands and agrees to treatment plan. Anticipatory guidance given. Patient agrees to follow-up as directed and is aware of reasons to seek care at the emergency department. Portions of this record may have been created with voice recognition software Level of Care: Express Care Visit Vital Signs Vital signs: Reviewed. MDM - URI/Sore Throat MDM Narrative Medical decision making narrative: Differential diagnosis considered: Mohamud virus, strep pharyngitis, allergic rhinitis, upper respiratory tract infection, sinusitis, rhinosinusitis, nasopharyngitis. viral pharyngitis, otitis media, otitis externa, pneumonia, bronchitis, viral cough syndrome, viral syndrome, and influenza. Exam findings show no acute concerns or changes; patient is non-toxic appearing and is in no distress. Patient is appropriate for outpatient treatment and follow-up. Lab Data Attestation: I reviewed the patient's lab results. Critical Care Time Critical Care Time Critical Care Time: No Discharge Plan Discharge Clinical Impression: Sinusitis Patient Disposition: Home Condition: Stable Instructions: Antibiotic Form, Sinusitis (ED) Additional Instructions: Take medication as prescribed Nonprescription pain medications, such as acetaminophen (eg, Tylenol) or ibuprofen (eg, Motrin, Advil), are recommended for pain. Flushing the nose and sinuses with a saline solution several times per day has been proven to decrease pain associated with congestion and shorten the duration of symptoms. Nasal steroids (such as Flonase, 2 sprays in each nostril daily) can help to reduce swelling inside the nose, usually within two to three days. These drugs have few side effects and relieve symptoms in most people. Oral decongestants (pseudoephedrine and phenylephrine) may be helpful if you have associated symptoms of ear pain or fullness. Medications to thin secretions (such as guaifenesin) may help to clear mucus. Please follow-up with your primary care doctor in the next 1-2 days. If you cannot follow-up with your primary care doctor please go to the ED for any urgen t issues. If you have any worsening of symptoms or any other concerns please go to the ED immediately. Patient Language: Prydeinig Prescriptions: New prednisone 20 mg tablet 40 mg PO DAILY 5 Days Qty: 10 0RF doxycycline monohydrate 100 mg tablet 100 mg PO BID 7 Days Qty: 14 0RF No Action lamotrigine 100 mg tablet 100 mg PO BID budesonide-formoterol [Symbicort] 80-4.5 mcg/actuation HFA aerosol inhaler 1 inh INHALATION DAILY clonazepam 0.5 mg tablet 0.5 mg PO BID gabapentin 100 mg capsule fluticasone propionate 50 mcg/actuation spray,suspension INTRANASAL cyclobenzaprine 10 mg tablet 10 mg PO HS PRN (Reason: muscle spasm) Qty: 10 0RF trazodone 100 mg tablet 100 mg PO BID buspirone 10 mg tablet 20 mg PO TID albuterol sulfate 90 mcg/actuation HFA aerosol inhaler 1 inh INHALATION DAILY azithromycin 250 mg tablet 250 mg PO DAILY Qty: 6 0RF Rx Instructions: take 500 mg today (day 1), then 250 mg daily on days 2-5. Follow-up/Referrals: Gabriella,Kings Núñez MD [Primary Care Provider] Time of Disposition: 11:35
[2025-01-15 11:15] VITALS: BP 140/60; PULSE 70; RESP 18; TEMP 36.4; O2SAT 99
== END 2025-01-15 11:39 | disposition home or self-care (01) ==
PROVIDERS: Emergency Provider Nurse Practitioner; PCP Family Medicine
DX: J32.9 Chronic sinusitis, unspecified (principal); F17.210 Nicotine dependence, cigarettes, uncomplicated; J44.9 Chronic obstructive pulmonary disease, unspecified; R01.1 Cardiac murmur, unspecified; G62.9 Polyneuropathy, unspecified; M19.90 Unspecified osteoarthritis, unspecified site; Z85.3 Personal history of malignant neoplasm of breast; Z90.12 Acquired absence of left breast and nipple
CPT/HCPCS: 99213; G0463